=== PATIENT | female | born 1965 | race Caucasian/White ===

== ENCOUNTER → 2016-11-04 | Outpatient (CLI) | payer BC ==
[~2016-11-04] MED LIST: BCPILLS PO; CALCTAB5 PO; CHOL100010 PO; EPP3/2 IM; GLUCOSAMINE PO; MULT-513 PO
--- NOTE | 2016-11-04 16:30 | MAMMOGRAPHY REPORT ---
BILATERAL DIGITAL SCREENING MAMMOGRAM TOMOSYNTHESIS WITH CAD: 11/04/2016 TECHNIQUE: Breast tomosynthesis in addition to standard 2D mammography was performed. Current study was also evaluated with a Computer Aided Detection (CAD) system. COMPARISON: Comparison is made to exams dated: 01/25/2013 mammogram, 01/04/2012 mammogram, 07/14/2010 mammogram, 07/20/2010 mammogram, and 10/28/2015 mammogram - [facility]. BREAST COMPOSITION: The tissue of both breasts is extremely dense, which lowers the sensitivity of mammography. FINDINGS: No suspicious masses, calcifications, or areas of architectural distortion are noted in e ither breast. There has been no significant interval change compared to prior exams. 8 mm asymmetry seen within the left slightly lateral breast on the cc view only has the appearance of normal overl apping fibroglandular tissue on the tomosynthesis images. IMPRESSION: ACR BI-RADS CATEGORY 2: BENIGN There is no mammographic evidence of malignancy. A 1 year screening mammogram is recommended. The p atient will receive written notification of the results. Approximately 10% of breast cancers are not detected with mammography. A negative mammographic repor t should not delay biopsy if a clinically suggestive mass is present. Becky Noland M.D. ah/:11/04/2016 15:49:08 Home Care Chaplain: Mitzi MENDIOLA)(Erica), [facility] letter sent: Normal 1/2 BI-RADS Code: ACR BI-RADS Category 2: Benign
== END | disposition home or self-care (01) ==
LOC: C.MAMM 09:53
PROVIDERS: ATTEND Obstetrics & Gynecology
DX: Z12.31 Encounter for screening mammogram for malignant neoplasm of breast (principal)

== ENCOUNTER → 2016-11-26 | Outpatient (CLI) | payer BC | END | disposition home or self-care (01) | LOC: C.LAB 19:21 | PROVIDERS: ATTEND Obstetrics & Gynecology | DX: N95.1 Menopausal and female climacteric states (principal) ==

== ENCOUNTER → 2017-01-18 | Outpatient (CLI) | payer BC ==
--- NOTE | 2017-01-19 10:02 | MYOCARDIAL PERFUSION SCAN ---
DATE OF STUDY: 01/18/2017. REQUESTING PHYSICIAN: Dr. David Miller. STUDY TITLE: ONE-DAY NUCLEAR MEDICINE TECHNETIUM-99M CARDIOLITE MYOCARDIAL PERFUSION SCAN INDICATIONS: Sustained ventricular tachycardia. EKG: Resting EKG shows a junctional rhythm with versed ectopic atrial rhythm with a ventricular rate of 48. There are no significant ST abnormalities. EXERCISE EKG: The patient exercised for 14 minutes and 7 seconds achieving 17.2 METS and 83% of maximum predicted heart rate. Functional capacity was excellent. Blood pressure response was normal, rising from 100/68 to 140/72. There were rare PVCs but no other complex arrhythmias noted with exercise or recovery. TECHNIQUE: For the stress portion of the study 28.2 mCi of technetium-99m Cardiolite IV was injected at 9:40 a.m. on 01/18/2017. Fifteen minutes following the injection, imaging of the heart was performed in multiple projections. For the rest portion of the study, 11.1 mCi of technetium-99m Cardiolite IV was injected at 7:30 a.m. One hour following injection, imaging of the heart was performed in the same projections. FINDINGS: Raw images were reviewed in detail. There was mild diaphragmatic attenuation. There was minimal breast shadow attenuation on both stress and rest. There was mild gut uptake impacting the inferior imaging border of the heart, moreso on rest than in stress. There was no significant pathologic extracardiac uptake. The short axis, vertical long axis, and horizontal long axis images were reviewed in detail. There was normal myocardial perfusion on both rest and stress images. LV size was normal with no TID. End-diastolic volume was 72 mL, LV function was normal with a calculated ejection fraction of 69%. There were no regional wall motion abnormalities. IMPRESSION: 1. Normal myocardial perfusion. Negative exercise SPECT for ischemia. 2. Negative exercise EKG for ischemia. Excellent functional capacity, achieving 17.2 mets. 3. No exercise-induced arrhythmias noted. 4. Normal left ventricular size and function with a calculated ejection fraction of 69%. 5. Prognostically, above findings suggests a low risk for future adverse ischemic events. MTDD
== END | disposition home or self-care (01) ==
LOC: C.NUCL 07:08
PROVIDERS: ATTEND Internal Medicine Interventional Cardiology
DX: I47.2 Ventricular tachycardia (principal)

== ENCOUNTER 2017-05-16 11:17 | Day surgery (SDC) | payer BC ==
[~2017-05-16] VITALS: Ht 170.2 cm; Wt 57.0 kg
[2017-05-16 11:36] VITALS: BP 120/68; PULSE 47; TEMP 36.6; O2SAT 100; Ht 170.2 cm; Wt 57.0 kg
--- NOTE | 2017-05-16 13:01 | History & Physical Bridge Note ---
H&P Re-Evaluation Bridge Note: I have examined the patient, reviewed the History & Physical and in the interval since the performance of the History & Physical I have noted the following changes of clinical significance: One episode of syncope last night.
[2017-05-16] MEDS ORDERED: LIDOCAINE HCL 1% 20 ML VIAL ONE (13:06)
--- NOTE | 2017-05-16 13:23 | Discharge Instructions ---
Discharge Instructions Procedure Procedure Date: May 16, 2017. Reason for Visit: Ventricular Tachycardia. Discharge Discharge Date: May 16, 2017. Discharge Diagnosis: SYNCOPE Last Recorded Wt (Kilograms): 57 Anesthesia Post Anesthesia Instructions: If you have had General Anesthesia or IV Sedation: * Do not drive today. * Resume driving when surgeon permits. * Do not make important decisions or sign legal documents today. * Call surgeon for: 1. Temperature elevations greater than 101 degrees F. 2. Uncontrollable pain. 3. Excessive bleeding. 4. Persistent nausea and vomiting. 5. Medication intolerance (nausea, vomiting or rash). * For nausea and vomiting use only clear liquids such as: tea, soda, bouillon until nausea subsides, then gradually increase diet as tolerated. * If you have any concerns or questions, call your surgeon's office. If physician is unavailable and it is an emergency, call 911 or go to the nearest emergency room. Instructions Activity Recommendations: limitations as noted below Return to School/Work: with the following limitations Recommended Home Diet: no limitations Allergies: Coded Allergies: BEE STING (Verified Allergy, Unknown, swelling, 09/12/13) Provider Instructions Keep wound dry and steri-strip intact until f/u next week. May remove outer bulky dressing in AM Follow Up Follow-up with: Cardiology nurse visit at [facility] next week. Briseida Hairston Recommendations: Call your doctor if: * Temperature above 101 degrees * Pain not relieved by pain medicine ordered * There is increased drainage or redness from any incision * You have any unanswered questions or concerns. Your Doctors Instructions noted above were prepared by provider Lauro Lee. Patient Signature Section: Patient Instructions Signature Page Renetta Shieldscaseyramiro Patient (or Guardian) Signature/Date: I have read and understand the instructions given to me by my caregivers. Caregiver/RN/Doctor Signature/Date: The above-named patient and/or guardian has received patient instructions on this date. + Original Patient Signature Page (only) stays with chart. Please make copy for patient.
[2017-05-16 13:29] VITALS: BP 133/82; PULSE 60; TEMP 36.9; O2SAT 99
--- NOTE | 2017-05-16 17:13 | OPERATIVE REPORT ---
DATE OF OPERATION: 05/16/2017 PROCEDURE PERFORMED: Implantation of patient activated loop recorder. STAFF SSN/SSBN ASSISTANT NAVIGATOR: Dr. David Lee. INDICATIONS: Ms. Renetta Lira is a 52-year-old woman with a known history of ventricular tachycardia. She also has periods of syncope and presyncope. Despite multiple episodes with outpatient monitoring, we have never been able to correlate her symptoms with an arrhythmia. As such, she was advised to undergo more prolonged period of monitoring. PROCEDURE DETAIL: The patient was informed of risks, benefits, and alternatives to the intended procedure. She understood such and wished to proceed. She was taken to the electrophysiology suite in a fasting state. The upper chest area was prepped and draped in usual sterile fashion. Area left lateral to the sternum and the fourth intercostal space was subsequently anesthetized using subcutaneous administration of Xylocaine and Marcaine solution. A small incision was made at the site and the device was implanted using a proprietary implantation kit. The small incision was closed with a single 4-0 Vicryl suture, followed by a Steri-Strip and a sterile dressing. The device was tested noninvasively prior to conclusion of the procedure. The patient tolerated the procedure well. There were no immediate complications. EQUIPMENT USED: One new patient activated loop recorder, cooler conveyor loader [employer], model #LNQ11, serial #[id number]. IMPRESSION: Successful implantation of patient activated loop recorder. I attest to the content of the Intraoperative Record and any orders documented therein. Any exception s are noted below.
== END 2017-05-16 14:10 | disposition home or self-care (01) ==
LOC: C.ACU 11:17
PROVIDERS: ATTEND Internal Medicine Clinical Cardiac Electrophysiology
DX: I47.2 Ventricular tachycardia (principal); M81.0 Age-related osteoporosis without current pathological fracture; Z82.49 Family history of ischemic heart disease and other diseases of the circulatory system

== ENCOUNTER → 2018-01-12 | Outpatient (CLI) | payer OTHER ==
--- NOTE | 2018-01-12 15:36 | MAMMOGRAPHY REPORT ---
BILATERAL DIGITAL SCREENING MAMMOGRAM TOMOSYNTHESIS WITH CAD: 01/12/2018 CLINICAL HISTORY: Routine screening. Patient has no complaints. TECHNIQUE: Breast tomosynthesis in addition to standard 2D mammography was performed. Current study was also evaluated with a Computer Aided Detection (CAD) system. COMPARISON: Comparison is made to exams dated: 11/04/2016 mammogram, 10/28/2015 mammogram, 01/25/2013 m ammogram, 01/04/2012 mammogram, 07/14/2010 mammogram, and 08/24/2006 mammogram - [facility]. BREAST COMPOSITION: The tissue of both breasts is extremely dense, which lowers the sensitivity of m ammography. FINDINGS: No suspicious masses, calcifications, or areas of architectural distortion are noted in ei ther breast. There has been no significant interval change compared to prior exams. IMPRESSION: ACR BI-RADS CATEGORY 1: NEGATIVE There is no mammographic evidence of malignancy. A 1 year screening mammogram is recommended. The pa tient will receive written notification of the results. Approximately 10% of breast cancers are not detected with mammography. A negative mammographic report should not delay biopsy if a clinically suggestive mass is present. Becky Noland M.D. ah/:01/12/2018 07:53:26 [employer] Chemist: Sandra SPICER(Etta)(M), [facility] letter sent: Normal 1/2 BI-RADS Code: ACR BI-RADS Category 1: Negative
== END | disposition home or self-care (01) ==
LOC: C.MAMM 07:31
PROVIDERS: ATTEND Obstetrics & Gynecology
DX: Z12.31 Encounter for screening mammogram for malignant neoplasm of breast (principal)